=== PATIENT | female | born 1990 | race Caucasian/White ===

== ENCOUNTER 2017-01-15 16:30 | Inpatient (IN) | payer OTHER ==
[2017-01-15] MEDS ORDERED: KETOROLAC 30 MG/ML 1 ML VIAL IVP STA (17:54)
[2017-01-15] MEDS ORDERED: NALOXONE 0.4 MG/ML 1 ML VIAL IV PRN (18:10)
--- NOTE | 2017-01-15 18:10 | ED ---
General Adult HPI - General Chief complaint: ENT Stated complaint: Abcess Time Seen by Provider: 01/15/17 16:50 Source: patient, family, RN notes reviewed Mode of arrival: ambulatory Limitations: no limitations - History of Present Illness Initial comments: 26-year-old female presenting with a four-day history of nose and upper lip pain and swelling. Patient states she initially noticed a small bump on the inside of her right near which drained some purulent material and then progressed to swelling of the upper lip. Patient also reports fever and chills over this time. She has no past medical history and is not on any current medication. She does have a history of staph infections in the past. Patient states she took some Bactrim which she had at home for this infection prior to evaluation. She was transferred from another hospital for IV antibiotics and further evaluation. She denies difficulty breathing or swallowing. She denies any nausea or vomiting. Patient does report fever and chills. - Related Data Home Medications Medication Instructions Recorded Confirmed Ferrous Sulfate [Feosol] 325 mg PO DAILY 01/15/17 01/15/17 Prw-Okvz-Wczbv Acid 1 cap PO DAILY 01/15/17 01/15/17 [-U Capsule (formulary)] Allergies Allergy/AdvReac Type Severity Reaction Status Date / Time Penicillins Allergy Rash/Hives Verified 01/15/17 16:53 sertraline [From Zoloft] Allergy Rash/Hives Verified 01/15/17 16:53 Review of Systems ROS Statement: Those systems with pertinent positive or pertinent negative responses have been documented in the HPI. ROS Other: All systems not noted in ROS Statement are negative. Constitutional: Reports: fever, chills ENT: Denies: throat pain, dental pain Gastrointestinal: Denies: abdominal pain, nausea Past Medical History Additional Past Medical History / Comment(s): low iron History of Any Multi-Drug Resistant Organisms: None Reported Past Surgical History: No Surgical Hx Reported Past Psychological History: Bipolar Smoking Status: Current every day smoker Past Alcohol Use History: None Reported Past Drug Use History: None Reported General Exam Limitations: no limitations General appearance: alert, in no apparent distress Head exam: Present: atraumatic Eye exam: Present: PERRL ENT exam: Present: normal oropharynx, mucous membranes moist, other (Patient has large indurated and swollen upper lip which is worse on the left side. There is a lesion noted on the left naris. Incision on the inside of the upper left minimal drainage.) Neck exam: Present: full ROM. Absent: tenderness Respiratory exam: Present: normal lung sounds bilaterally. Absent: respiratory distress Cardiovascular Exam: Present: regular rate, normal rhythm GI/Abdominal exam: Present: soft. Absent: tenderness Extremities exam: Present: normal inspection, full ROM, normal capillary refill. Absent: pedal edema Back exam: Present: normal inspection Neurological exam: Present: alert, oriented X3 Psychiatric exam: Present: normal affect, normal mood Skin exam: Present: warm, dry Course Vital Signs 01/15/17 16:33 Temperature 98.8 F Pulse Rate 98 Respiratory 20 Rate Blood Pressure 123/73 O2 Sat by Pulse 98 Oximetry Medical Decision Making - Medical Decision Making 26-year-old female with a four-day history of worsening pain and swelling of the upper lip. This initially started as a lesion on the inside of her right nostril. Progress to the upper lip. She has erythematous, warm, indurated upper lip. Patient was transferred from an outside hospital after receiving 1 dose of IV antibiotics. At that time she also has drainage of the fluctuant portion on the inside of the upper lip. According to the physician who drained it there was minimal purulence at that time. Cultures of the fluid were sent. Patient took 3 days of Bactrim prior to evaluation. Pain is swelling worsened over this time despite antibiotics. Patient does have past history of staph infection. There is no fluctuance noted at this time there is significant erythema and induration. Patient will be continued on IV antibiotics and admitted for facial cellulitis, early abscess, and due to the fact that she failed outpatient therapy. HEENT placed on consult. Disposition Clinical Impression: Facial abscess Disposition: ADMITTED IP TO THIS [facility] Condition: Stable Referrals: None,Stated [Primary Care Provider] - 1-2 days Decision to Admit Reason: Admit from EC Decision Date: 01/15/17 Decision Time: 17:30
[2017-01-15] MEDS ORDERED: MORPHINE SULFATE 4 MG/ML SYRINGE IV PRN (18:18)
[2017-01-15] MEDS ORDERED: ONDANSETRON 4 MG/2 ML VIAL IVP PRN (18:18)
[2017-01-15] MEDS ORDERED: IV VANCOMYCIN PER PHARMACY 1 EACH MISC MISCELLANE PRN (18:22)
[2017-01-15] MEDS ORDERED: VANCOMYCIN 1,750 MG in SODIUM CHLORIDE 0.9% 250 ML IVPB STA (18:25)
[2017-01-15] MEDS: SODIUM CHLORIDE 0.9% 1,000 ML IV SCH (18:47)
[2017-01-15 21:00] VITALS: BMI 31.1
[2017-01-15] MEDS: MUPIROCIN 2% OINT 22 GM TUBE TOPICAL SCH (22:57)
[2017-01-15] MEDS ORDERED: RX INFO: IV CONTRAST WAS GIVEN 1 EACH MISC MISCELLANE PRN (23:22)
[2017-01-15] MEDS: methylPREDNISolone SOD SUCCI 125 MG/2 ML VIAL IV SCH (23:35)
[2017-01-15] MEDS: CLINDAMYCIN 600 MG in DEXTROSE 5% IN WATER 50 ML IVPB SCH ×2 (23:35)
[2017-01-16 00:06] LABS: Basophils % (A) 0 %; CH 30.5; CHCM 33.7; Eosinophils # (A) 0.3 k/uL (0-0.7); Eosinophils % (A) 3 %; HCT 35.3 % (34.0-46.0); HDW 2.58; HGB 11.6 gm/dL (11.4-16.0); Luc # (Auto) 0.17; Luc % (Auto) 2; Lymphocytes # (A) 1.6 k/uL (1.0-4.8); Lymphocytes % (A) 16 %; MCH 29.9 pg (25.0-35.0); MCV 90.7 fL (80.0-100.0); Mean Platelet Volume 8.2; Monocytes # (A) 0.6 k/uL (0-1.0); Monocytes % (A) 6 %; Neutrophils % (A) 73 %; RBC 3.89 m/uL (3.80-5.40); RDW 12.9 % (11.5-15.5); WBC 9.6 k/uL (3.8-10.6); WBC (Perox) 9.99
[2017-01-16 00:19] LABS: ALT 47 U/L (9-52); AST 23 U/L (14-36); Alkaline Phosphatase 84 U/L (38-126); Anion Gap 9 mmol/L; Blood Urea Nitrogen 15 mg/dL (7-17); Carbon Dioxide 25 mmol/L (22-30); Chloride 105 mmol/L (98-107); Glucose 92 mg/dL (74-99); Non-African American GFR(MDRD) >60 (>60 ml/min/1.73 sqM); Potassium 4.1 mmol/L (3.5-5.1); Sodium 139 mmol/L (137-145); Total Bilirubin 0.5 mg/dL (0.2-1.3); Total Protein 5.9 g/dL (6.3-8.2)
[2017-01-16] MEDS: HYDROmorphone 1 MG/ML 1 ML SYRINGE IVP PRN ×5 (00:36→13:03)
--- NOTE | 2017-01-16 02:25 | CT ---
EXAM: CT Head Without and With Intravenous Contrast CLINICAL HISTORY: Reason: facial cellulitis TECHNIQUE: Axial computed tomography images of the head/brain without and with intravenous contrast. EXAM: CT Head Without and With Intravenous Contrast CLINICAL HISTORY: Reason: facial cellulitis TECHNIQUE: Axial computed tomography images of the head/brain without and with intravenous contrast. DLP: 3147.00 mGy-cm (combined for both head/facial exams). This CT exam was performed using one or more of the following dose reduction techniques: automated exposure control, adjustment of the mA and/or kV according to patient size, and/or use of iterative reconstruction technique. COMPARISON: No relevant prior studies available. FINDINGS: Ventricles, sulci and cisternal spaces unremarkable. No intracranial hemorrhage or mass effect. No abscess is identified. No proptosis. No definite evidence for cavernous sinus thrombosis. IMPRESSION: No acute intracranial findings. No evidence for cavernous sinus thrombosis or abscess is identified. MRI with contrast may be more sensitive for this.
--- NOTE | 2017-01-16 02:29 | CT ---
EXAM: CT Facial Without And With Intravenous Contrast CLINICAL HISTORY: Reason: facial cellulitis TECHNIQUE: Axial computed tomography images of the facial without and with intravenous contrast. DLP: 3147.00 mGy-cm (combined for both head/facial exams). This CT exam was performed using one or more of the following dose reduction techniques: automated exposure control, adjustment of the mA and/or kV according to patient size, and/or use of iterative reconstruction technique. COMPARISON: No relevant prior studies available. FINDINGS: Possible areas of soft tissue swelling. Could represent cellulitis. Correlate with exam. No evidence for cavernous thrombosis or abscess is seen though MRI with contrast may be more sensitive for this. Sinuses and mastoids well aerated. IMPRESSION: Findings which may represent facial cellulitis. No evidence for cavernous sinus thrombosis or abscess is identified though MRI may be more sensitive for this. Consider, as indicated.
[2017-01-16] MEDS ORDERED: VANCOMYCIN 1,500 MG in SODIUM CHLORIDE 0.9% 250 ML IVPB SCH (04:00)
[2017-01-16] MEDS: CLINDAMYCIN 600 MG in DEXTROSE 5% IN WATER 50 ML IVPB SCH ×2 (07:29)
[2017-01-16] MEDS: SODIUM CHLORIDE 0.9% 1,000 ML IV SCH (07:30)
[2017-01-16] MEDS: MUPIROCIN 2% OINT 22 GM TUBE TOPICAL SCH (07:35)
[2017-01-16] MEDS: methylPREDNISolone SOD SUCCI 125 MG/2 ML VIAL IV SCH (07:35)
[2017-01-16 07:46] LABS: Basophils % (A) 0 %; CH 30.5; CHCM 33.5; Eosinophils % (A) 0 %; HCT 38.1 % (34.0-46.0); HDW 2.55; HGB 12.6 gm/dL (11.4-16.0); Luc # (Auto) 0.05; Luc % (Auto) 1; Lymphocytes # (A) 0.4 k/uL (1.0-4.8); Lymphocytes % (A) 6 %; MCH 30.3 pg (25.0-35.0); MCHC 33.1 g/dL (31.0-37.0); MCV 91.4 fL (80.0-100.0); Mean Platelet Volume 8.1; Monocytes # (A) 0.1 k/uL (0-1.0); Monocytes % (A) 1 %; Neutrophils # (A) 6.5 k/uL (1.3-7.7); Neutrophils % (A) 92 %; RBC 4.17 m/uL (3.80-5.40); RDW 12.8 % (11.5-15.5); WBC (Perox) 7.11
[2017-01-16 07:59] VITALS: BP 105/62; PULSE 78; RESP 16; TEMP 97.8
[2017-01-16 08:04] LABS: Anion Gap 11 mmol/L; Blood Urea Nitrogen 14 mg/dL (7-17); Calcium 9.4 mg/dL (8.4-10.2); Carbon Dioxide 24 mmol/L (22-30); Chloride 103 mmol/L (98-107); Glucose 191 mg/dL (74-99); Non-African American GFR(MDRD) >60 (>60 ml/min/1.73 sqM); Potassium 4.8 mmol/L (3.5-5.1); Sodium 138 mmol/L (137-145)
[2017-01-16] MEDS ORDERED: NICOTINE 21MG/24HR PATCH TRANSDERM SCH (09:00)
[2017-01-16] MEDS ORDERED: KETOROLAC 30 MG/ML 1 ML VIAL IVP PRN (11:32)
[2017-01-16] MEDS ORDERED: VANCOMYCIN 1,250 MG in SODIUM CHLORIDE 0.9% 250 ML IVPB SCH (12:00)
[2017-01-16] MEDS ORDERED: KETOROLAC 30 MG/ML 1 ML VIAL IVP SCH (12:00)
[2017-01-16] MEDS ORDERED: LIDOCAINE 1%-EPI 1:100,000 20 ML VIAL SQ STA (12:57)
--- NOTE | 2017-01-16 13:04 | P.GSCN ---
History of Present Illness Consult date: 01/16/17 Reason for Consult: Facial cellulitis rule out abscess Requesting physician: Yehuda Weeks History of present illness: This is a 26-year-old white female who personally 5 days ago developed swelling underneath the right silicone the nose. He continued on were her right face became swollen and then went into her lip. She went to [facility] where she underwent an incision and drainage of a left lip swelling to rule out abscess pus was found. The patient was then transferred here for treatment. She tells me that she is markedly improved since she's been admitted and is happy with results of her treatment. Her right facial swelling has almost completely resolved she still has some swelling over the left lip. That's the side of the lip where she underwent an incision and drainage procedure. Her facial infection appeared to have started from the right nasal infection. Therefore, staph aureus is strongly suspect. Review of Systems - Constitutional Denies anorexia - EENT Ears, nose, mouth and throat: Denies ant. neck pain, Denies epistaxis - Cardiovascular Denies decreased exercise tolerance - Respiratory Denies dyspnea - Gastrointestinal Denies abdominal pain, Denies coffee ground emesis - Genitourinary Genitourinary: Denies dysuria Menstruation: Denies cycle variable - Musculoskeletal Denies frequent falls - Integumentary Denies change in hair/nails - Neurological Denies balance difficulties - Psychiatric Denies anxiety - Endocrine Denies excessive thirst - Hematologic/Lymphatic Denies easy bleeding - Allergic/Immunologic Denies allergic rhinitis Past Medical History Additional Past Medical History / Comment(s): low iron History of Any Multi-Drug Resistant Organisms: None Reported Past Surgical History: No Surgical Hx Reported Past Psychological History: Bipolar Additional Psychological History / Comment(s): pt states she no longer takes meds for bipolar, states it made her feel worse. Smoking Status: Current every day smoker Past Alcohol Use History: None Reported Past Drug Use History: None Reported Medications and Allergies Home Medications Medication Instructions Recorded Confirmed Type Ferrous Sulfate [Feosol] 325 mg PO DAILY 01/15/17 01/15/17 History Zwm-Mqfp-Notqz Acid 1 cap PO DAILY 01/15/17 01/15/17 History [-U Capsule (formulary)] Allergies Allergy/AdvReac Type Severity Reaction Status Date / Time Penicillins Allergy Rash/Hives Verified 01/15/17 16:53 sertraline [From Zoloft] Allergy Rash/Hives Verified 01/15/17 16:53 Surgical - Exam Osteopathic Statement: *. No significant issues noted on an osteopathic structural exam other than those noted in the History and Physical/Consult. Vital Signs Temp Pulse Resp BP Pulse Ox 98.8 F 98 20 123/73 98 01/15/17 16:33 01/15/17 16:33 01/15/17 16:33 01/15/17 16:33 01/15/17 16:33 - General well developed, well nourished, no severe distress, no cachectic - Eyes PERRL, normal ocular movement - ENT Head is normocephalic the face is symmetric there's no abnormal movements is no tenderness to the sinuses are mastoids is no nodules or eruptions or parasites on scalp there is swelling over the left upper lip ears auricles are well- formed canals are clear nose shows a small ulcer along the [place] right nose. Mouth shows no oral lesions other than the lip swelling on the left upper lip and a previous incision and drainage incision was noted palpation reveals fullness to that area a fine-needle aspiration was performed to see if there is any purulence and no purulence was discovered upon needle aspiration. Neck shows no tumors or masses normal pinna, no congestion, no decreased hearing, nasal discharge - Neck no no masses, no no bruits - Integumentary no rash - Neurologic normal coordination, normal sensation - Musculoskeletal normal gait - Psychiatric oriented to time, oriented to person, oriented to place, speech is normal, memory intact Results - Labs 01/16/17 07:11 01/16/17 07:11 Abnormal Lab Results - Last 24 Hours (Table) 01/15/17 01/16/17 01/16/17 Range/Units 23:45 07:11 07:11 Lymphocytes # 0.4 L (1.0-4.8) k/uL Glucose 191 H (74-99) mg/dL Total Protein 5.9 L (6.3-8.2) g/dL Diabetes panel 01/15/17 01/16/17 Range/Units 23:45 07:11 Sodium 139 138 (137-145) mmol/L Potassium 4.1 4.8 (3.5-5.1) mmol/L Chloride 105 103 (98-107) mmol/L Carbon Dioxide 25 24 (22-30) mmol/L BUN 15 14 (7-17) mg/dL Creatinine 0.80 0.69 (0.52-1.04) mg/dL Glucose 92 191 H (74-99) mg/dL Calcium 9.0 9.4 (8.4-10.2) mg/dL AST 23 (14-36) U/L ALT 47 (9-52) U/L Alkaline Phosphatase 84 (38-126) U/L Total Protein 5.9 L (6.3-8.2) g/dL Albumin 3.5 (3.5-5.0) g/dL Calcium panel 01/15/17 01/16/17 Range/Units 23:45 07:11 Calcium 9.0 9.4 (8.4-10.2) mg/dL Albumin 3.5 (3.5-5.0) g/dL Pituitary panel 01/15/17 01/16/17 Range/Units 23:45 07:11 Sodium 139 138 (137-145) mmol/L Potassium 4.1 4.8 (3.5-5.1) mmol/L Chloride 105 103 (98-107) mmol/L Carbon Dioxide 25 24 (22-30) mmol/L BUN 15 14 (7-17) mg/dL Creatinine 0.80 0.69 (0.52-1.04) mg/dL Glucose 92 191 H (74-99) mg/dL Calcium 9.0 9.4 (8.4-10.2) mg/dL Adrenal panel 01/15/17 01/16/17 Range/Units 23:45 07:11 Sodium 139 138 (137-145) mmol/L Potassium 4.1 4.8 (3.5-5.1) mmol/L Chloride 105 103 (98-107) mmol/L Carbon Dioxide 25 24 (22-30) mmol/L BUN 15 14 (7-17) mg/dL Creatinine 0.80 0.69 (0.52-1.04) mg/dL Glucose 92 191 H (74-99) mg/dL Calcium 9.0 9.4 (8.4-10.2) mg/dL Total Bilirubin 0.5 (0.2-1.3) mg/dL AST 23 (14-36) U/L ALT 47 (9-52) U/L Alkaline Phosphatase 84 (38-126) U/L Total Protein 5.9 L (6.3-8.2) g/dL Albumin 3.5 (3.5-5.0) g/dL Assessment and Plan (1) Cellulitis of lip Status: Acute Plan: I performed a needle aspiration of this left lip swelling and there was no evidence of purulence. It appears that the remaining facial cellulitis which is centered around the left upper lip is not an abscess but just a cellulitis. I will continue to treat with antibiotics accordingly. Staph aureus is strongly suspect. Outpatient treatment with clindamycin would be appropriate. The use of Avelox as another option. I've given her my card and she is to follow up with me on an as-needed basis. Time with Patient: Greater than 30
--- NOTE | 2017-01-16 13:06 | P.OP ---
Date of Procedure: 01/16/17 Preoperative Diagnosis: Left lip swelling Postoperative Diagnosis: Same rule no abscess seen Procedure(s) Performed: Needle aspiration of a left lip swelling to rule out abscess Implants: Anesthesia: none Surgeon: Chino Randle Estimated Blood Loss (ml): 2 Pathology: none sent Condition: stable Disposition: no change Indications for Procedure: Patient has left lip swelling and abscess is to be ruled out. Operative Findings: No purulence was obtained and the lip swelling appears to be cellulitis, no abscess was identified Description of Procedure: Left upper lip was held and a needle was inserted into the swelling of the left upper lip with aspiration. There is no evidence of any purulence. No abscess was identified
--- NOTE | 2017-01-16 22:10 | P.CONS ---
History of Present Illness - Reason for Consult Consult date: 01/16/17 - Chief Complaint nasal and facil swelling - History of Present Illness 26-year-old female presents to Hospital from an outside hospital As a transfer because of ongoing difficulties with right nasal and left upper lip swelling. She evidence of an abscess on the upper lip. The ER physician at the other facility performed incision and drainage. Some purulent drainage was found. With concerns of the need for an ENT consult she was transferred to our facility and ID consult was also obtained. The patient is quite anxious. She has 6 children at home. She is feeling better. Still having some pain. She denying fevers chills rigors or sweats. Has a history of prior staphylococcal infection. She currently was trying to figure out how she got a spider bite in her nose. Review of Systems HEENT:Denies headache or acute visual change. Denies sinus or mouth discomforts. Denies neck stiffness or pain. he has the pain to the right nare Has a left upper lip pain. Some swelling to the frenulum is noted Lungs: Denies significant shortness of breath, cough, sputum production, or hemoptysis. Cardiovascular: Denies significant shortness of breath, chest pain, chest wall pain, orthopnea, dyspnea on exertion, syncope Gastrointestinal:Denies nausea, vomiting, diarrhea, constipation, hematemesis, melena, hematochezia. No no significant change of bowel habit noticed. Musculoskeletal: denies significant myalgias or arthralgias. No new joint swelling. Denies new back pain. Skin: Denies new rash or lesions. No new ulcers or wounds are related.. Neuro: Denies headache or visual change. Denies any new onset weakness or difficulty with ambulation. Denies falls or seizures. Psychiatric:anxious because she has 6 children at home Endocrine: Denies significant fatigue, denies significant weight loss or weight gain. Past Medical History Additional Past Medical History / Comment(s): low iron History of Any Multi-Drug Resistant Organisms: None Reported Past Surgical History: No Surgical Hx Reported Past Psychological History: Bipolar Additional Psychological History / Comment(s): pt states she no longer takes meds for bipolar, states it made her feel worse. lives in the family home with her hhusband in 6 children. Is an ongoing tobacco smoker. denies alcohol use. Denies recreational. No experience. No travel history. Does not work outside of the home. No animal exposures Smoking Status: Current every day smoker Past Alcohol Use History: None Reported Past Drug Use History: None Reported Medications and Allergies Home Medications and Allergies Comment(s): please see the current medication list Home Medications Medication Instructions Recorded Confirmed Type Ferrous Sulfate [Iron (65 MG 325 mg PO DAILY 01/15/17 01/15/17 History Elemental)] Jtc-Kfzo-Cseho Acid 1 cap PO DAILY 01/15/17 01/15/17 History [-U Capsule (formulary)] Allergies Allergy/AdvReac Type Severity Reaction Status Date / Time Penicillins Allergy Rash/Hives Verified 01/15/17 16:53 sertraline [From Zoloft] Allergy Rash/Hives Verified 01/15/17 16:53 Physical Exam Vitals: Vital Signs Temp Pulse Resp BP Pulse Ox 01/16/17 07:00 97.8 F 78 16 105/62 98 01/15/17 22:13 98.1 F 84 18 138/74 Intake and Output 01/16/17 01/16/17 01/16/17 06:59 14:59 22:59 Intake Total 1125 1475 Balance 1125 1475 Intake: Intake, IV Titration 625 625 Amount Clindamycin 600 mg In 100 100 Dextrose 5% in Water 50 ml @ 100 mls/hr IVPB Q8HR OTONI[facility] Rx#:[id number] Sodium Chloride 0.9% 1, 525 525 000 ml @ 75 mls/hr IV . [id number] OTONIEL Rx#:[id number] Oral 500 850 Other: Voiding Method Toilet Toilet # Voids 3 26-year-old female who is minimally uncomfortable HEENT: Anicteric conjunctiva are pink and moist nasal mucosa is without bleeding. There is evidence of the swelling of the right nare. There is also swelling to the left The pupils surface has been incise There was scant purulent drainage There is some swelling of the tissu between the nose and the lip across the frenulum is not distinctly tender but the nose and lip is. There is no oral thrush Neck: The neck is supple without significant lymphadenopathy or thyromegaly. Lungs: Good bilateral air entry without significant crackles or wheezing. There is no significant bronchial sounds. There is no egophony or dullness. Heart: Regular rate and rhythm with an audible S1-S2, no S3 no S4. There is no significant murmur click or rub, PMI was nondisplaced. Abdomen: Positive bowel sounds soft and nontender without palpable masses or organomegaly. There was no guarding or rebound. Extremities: The upper extremities have excellent pulses they are symmetric, no significant petechiae or telangiectasia. No splinter hemorrhages were noted. The lower extremities are free from significant edema. The peripheral pulses were 2+ and symmetric. Neuro: Awake alert oriented to person place and time. There are no acute new gross focal sensory motor deficits. Results CBC & Chem 7: 01/16/17 07:11 01/16/17 07:11 Labs: Abnormal Lab Results - Last 24 Hours (Table) 01/15/17 01/16/17 01/16/17 Range/Units 23:45 07:11 07:11 Lymphocytes # 0.4 L (1.0-4.8) k/uL Glucose 191 H (74-99) mg/dL Total Protein 5.9 L (6.3-8.2) g/dL Laboratory Results WBC 7.0 k/uL (3.8-10.6) 01/16/17 07:11 RBC 4.17 m/uL (3.80-5.40) 01/16/17 07:11 Hgb 12.6 gm/dL (11.4-16.0) 01/16/17 07:11 Hct 38.1 % (34.0-46.0) 01/16/17 07:11 MCV 91.4 fL (80.0-100.0) 01/16/17 07:11 MCH 30.3 pg (25.0-35.0) 01/16/17 07:11 MCHC 33.1 g/dL (31.0-37.0) 01/16/17 07:11 RDW 12.8 % (11.5-15.5) 01/16/17 07:11 Plt Count 258 k/uL (150-450) 01/16/17 07:11 Neutrophils % 92 % 01/16/17 07:11 Lymphocytes % 6 % 01/16/17 07:11 Monocytes % 1 % 01/16/17 07:11 Eosinophils % 0 % 01/16/17 07:11 Basophils % 0 % 01/16/17 07:11 Neutrophils # 6.5 k/uL (1.3-7.7) 01/16/17 07:11 Lymphocytes # 0.4 k/uL (1.0-4.8) L 01/16/17 07:11 Monocytes # 0.1 k/uL (0-1.0) 01/16/17 07:11 Eosinophils # 0.0 k/uL (0-0.7) 01/16/17 07:11 Basophils # 0.0 k/uL (0-0.2) 01/16/17 07:11 Sodium 138 mmol/L (137-145) 01/16/17 07:11 Potassium 4.8 mmol/L (3.5-5.1) 01/16/17 07:11 Chloride 103 mmol/L (98-107) 01/16/17 07:11 Carbon Dioxide 24 mmol/L (22-30) 01/16/17 07:11 Anion Gap 11 mmol/L 01/16/17 07:11 BUN 14 mg/dL (7-17) 01/16/17 07:11 Creatinine 0.69 mg/dL (0.52-1.04) 01/16/17 07:11 Est GFR (MDRD) Af Amer >60 (>60 ml/min/1.73 sqM) 01/16/17 07:11 Est GFR (MDRD) Non-Af >60 (>60 ml/min/1.73 sqM) 01/16/17 07:11 Glucose 191 mg/dL (74-99) H 01/16/17 07:11 Calcium 9.4 mg/dL (8.4-10.2) 01/16/17 07:11 Total Bilirubin 0.5 mg/dL (0.2-1.3) 01/15/17 23:45 AST 23 U/L (14-36) 01/15/17 23:45 ALT 47 U/L (9-52) 01/15/17 23:45 Alkaline Phosphatase 84 U/L (38-126) 01/15/17 23:45 Total Protein 5.9 g/dL (6.3-8.2) L 01/15/17 23:45 Albumin 3.5 g/dL (3.5-5.0) 01/15/17 23:45 outside cultures pending gram-posit Assessment and Plan (1) Cellulitis of lip Narrative/Plan: 26-year-old female presents as a transfer from an outside hospital because of ongoing pain and swelling to the right side of her nose and left upper lip. Incision and drainage of an performed of the Jose mucosa of the left upper lip. Purulent drainage was found. It was thought that she would need to see ENT surgery. Consult has been placed. Antibiotic therapy was requested per infectious disease. antibiotics currently with clindamycin and vancomycin therapy. It is likely the patient will be Clindamycin can mucosa involvement. These report back if there is any evidence of Local care with mupirocin to the n The nurse demonstrates to her how to apply. He dose of Solu-Medrol is being gin to hopefully help ignificant diana. ENT is to evaluate and likely will not perform surgery. Likely discharged home on oral clindanycin today there is an elevated blood glucose that will need follow up at her primary office. Status: Acute
[2017-01-17] MEDS ORDERED: VANCOMYCIN TROUGH DUE 1 EACH MISC MISCELLANE ONE (03:00)
[2017-01-17] MEDS ORDERED: FAMOTIDINE 20 MG TAB PO SCH (09:00)
== END 2017-01-16 15:40 | disposition home or self-care (01) | DRG 158 ==
LOC: EC 16:30 → 5MS5E 18:10
PROVIDERS: ADMIT Hospitalist; ATTEND Hospitalist
PROC: 0C9 Mouth and Throat, Drainage (ICD-10-PCS; principal; 2017-01-16)
DX: K13.0 Diseases of lips (principal); L03.211 Cellulitis of face; Z86.14 Personal history of Methicillin resistant Staphylococcus aureus infection; F17.200 Nicotine dependence, unspecified, uncomplicated; T63.301A Toxic effect of unspecified spider venom, accidental (unintentional), initial encounter; R73.9 Hyperglycemia, unspecified; Z79.899 Other long term (current) drug therapy; Z88.0 Allergy status to penicillin; Z88.8 Allergy status to other drugs, medicaments and biological substances
CPT/HCPCS: 70470; 70488; 80048; 80053; 85025; 87040; 96365; 96366; 96375; 99285